=== PATIENT | female | born 1955 | race Caucasian/White ===

== ENCOUNTER 2016-09-01 11:56 | Emergency (ER) | payer OTHER ==
[2016-09-01 11:56] VITALS: BMI 23.8
[2016-09-01 12:07] VITALS: PULSE 77; RESP 16; TEMP 98
--- NOTE | 2016-09-01 12:58 | C.PDOC ---
History Of Present Illness 60 yr old female presents to the ER with complaints of constant neck pain to the right side for the past 1 month. Patient states the pain is worse with turning of the neck and movement. Denies trauma, heavy lifting, vision changes, chest pain, SOB, back pain, weakness or numbness. Time Seen by Provider: 09/01/16 12:08 Chief Complaint (Nursing): Back Pain History Per: Patient History/Exam Limitations: no limitations Onset/Duration Of Symptoms: Persistent (1 month ) Past Medical History Reviewed: Historical Data, Nursing Documentation, Vital Signs Vital Signs: Last Vital Signs Temp 98 F 09/01/16 13:16 Pulse 77 09/01/16 13:16 Resp 16 09/01/16 13:16 BP 114/60 09/01/16 13:16 Pulse Ox 100 09/01/16 13:16 Surgical History: Cholecystectomy Family History: States: No Known Family Hx - Social History Hx Tobacco Use: No Hx Alcohol Use: No Hx Substance Use: No - Immunization History Hx Tetanus Toxoid Vaccination: No Hx Influenza Vaccination: No Hx Pneumococcal Vaccination: No Review Of Systems Except As Marked, All Systems Reviewed And Found Negative. Eyes: Negative for: Vision Change Cardiovascular: Negative for: Chest Pain Respiratory: Negative for: Shortness of Breath Musculoskeletal: Positive for: Neck Pain (Right sided neck pain ). Negative for : Back Pain Neurological: Negative for: Weakness, Numbness Physical Exam - Physical Exam Appears: Well, Non-toxic, No Acute Distress Skin: Warm, Dry Head: Atraumatic, Normacephalic Eye(s): bilateral: Normal Inspection, PERRL, EOMI Neck: Paracervical Tenderness (Right ), Supple, Other ((+) Pain with lateral movement of the neck to the right.) Chest: Symmetrical, No Tenderness Cardiovascular: Rhythm Regular, No Murmur Respiratory: Normal Breath Sounds, No Rales, No Rhonchi, No Stridor, No Wheezing Back: Normal Inspection, No CVA Tenderness, No Paraspinal Tenderness Extremity: Normal ROM, No Swelling Neurological/Psych: Oriented x3, Normal Speech, Normal Motor, Normal Sensation, Normal Reflexes ED Course And Treatment O2 Sat by Pulse Oximetry: 97 Medical Decision Making Medical Decision Making: PLAN: * Tylenol PO * Toradol IM On re-exam, the patient reports improvement of symptoms. Lungs are CTA, heart is RRR, abdomen is soft, non-tender and tolerating PO well. Ambulatory in the Ed with steady gait. Follow up with the medical doctor within 1-2 days, Return if worsened. Disposition - Disposition Referrals: Tex Aviles MD [Medical Doctor] - Disposition: HOME/ ROUTINE Disposition Time: 12:54 Condition: GOOD Additional Instructions: Follow up with the medical doctor within 1-2 days, Return if worsened. Prescriptions: Cyclobenzaprine [Flexeril] 5 mg PO TID #21 tab Naproxen [Naprosyn] 500 mg PO BID #20 tab Instructions: Cervical Strain (DC) - Clinical Impression Clinical Impression: Cervical strain, Torticollis - PA / BUTTON BROACHER / Resident Statement MD/DO has reviewed & agrees with the documentation as recorded. - Scribe Statement The provider has reviewed the documentation as recorded by the Scribe Jaycee Parra All medical record entries made by the Scribshelton were at my direction and personally dictated by me. I have reviewed the chart and agree that the record accurately reflects my personal performance of the history, physical exam, medical decision making, and the department course for this patient. I have also personally directed, reviewed, and agree with the discharge instructions and disposition.
[2016-09-01 13:17] VITALS: BP 114/60
[2016-09-01 14:52] VITALS: O2SAT 97
== END 2016-09-01 13:16 | disposition home or self-care (01) ==
LOC: C.ER 11:56
DX: S16.1XXA Strain of muscle, fascia and tendon at neck level, initial encounter (principal); X58.XXXA Exposure to other specified factors, initial encounter; Y93.89 Activity, other specified; Y92.89 Other specified places as the place of occurrence of the external cause; M43.6 Torticollis
CPT/HCPCS: 96372; 99283; J1885

== ENCOUNTER 2016-10-06 10:16 | Emergency (ER) | payer OTHER ==
[2016-10-06 10:17] VITALS: BMI 23.8
--- NOTE | 2016-10-06 10:43 | C.PDOC ---
History Of Present Illness 60 y/o female, PMHx of glaucoma, c/o left eye pain for the past 3 days. Patient also reports some redness to the left eye which she noticed today. She describes pain as aching, radiating outward, and worsening with movement of the eye. No contacts or glasses. Patient notes that she takes Lumigan QHS, Combigan BID, Restanin BID, and Azopt BID. Otherwise denies fever, chills, discharge from eye, foreign body sensation, or other associated symptoms. PMD: Dr. Tex Aviles Farm Marketer: Dr. Mata Chase Time Seen by Provider: 10/06/16 10:42 Chief Complaint (Nursing): Eye Problem History Per: Patient History/Exam Limitations: no limitations Onset/Duration Of Symptoms: Days Current Symptoms Are (Timing): Still Present Injury To Eye?: No Quality: Aching, "Pain" Wears Contact Lens?: No Associated Symptoms: Pain. denies: Decreased Vision, Discharge From Eye Recent travel outside of the [place]: No Past Medical History Reviewed: Historical Data, Nursing Documentation, Vital Signs Vital Signs: Last Vital Signs Temp 98.4 F 10/06/16 10:37 Pulse 71 10/06/16 10:37 Resp 16 10/06/16 10:37 BP 127/78 10/06/16 10:37 Pulse Ox 99 10/06/16 11:50 - Medical History Other PMH: glaucoma Surgical History: Cholecystectomy Family History: States: Unknown Family Hx - Social History Hx Tobacco Use: No Hx Alcohol Use: No Hx Substance Use: No - Immunization History Hx Tetanus Toxoid Vaccination: No Hx Influenza Vaccination: No Hx Pneumococcal Vaccination: No Review Of Systems Except As Marked, All Systems Reviewed And Found Negative. Constitutional: Negative for: Fever, Chills Eyes: Positive for: Pain, Redness ENT: Negative for: Ear Pain, Throat Pain Respiratory: Negative for: Cough Physical Exam - Physical Exam Appears: Non-toxic, No Acute Distress Skin: Warm, Dry Head: Atraumatic, Normacephalic Eye(s): bilateral: PERRL, EOMI, left: Other (top left and medial sclera redness) Ear(s): Bilateral: Normal Nose: Normal Oral Mucosa: Moist Throat: Normal, No Erythema, No Exudate Neck: Supple Neurological/Psych: Oriented x3, Normal Speech, Normal Cognition ED Course And Treatment O2 Sat by Pulse Oximetry: 99 (RA) Pulse Ox Interpretation: Normal Medical Decision Making Medical Decision Making: Impression: 60 y/o female with left eye pain and redness Differential Diagnosis: acute angle glaucoma vs. uveitis vs. migraine Plan: * Fluorescein, Tetracaine * Reassess Progress: Left eye pressure taken with tonometer 3x: 16, 14, 13 No fluorescein uptake noted in cornea. Lower sclera has some uptake of flourescein. Globe of the eye soft. Discussed with public services assistant paper conservator Dr. Jurado who recommends Tobradex QID, and for the patient to follow up with her public services assistant on Saturday. Discussed with patient, who states she will follow up with her public services assistant, and also provided option to follow up with Dr. Jurado. Disposition Counseled Patient/Family Regarding: Studies Performed, Diagnosis, Need For Followup, Rx Given - Disposition Referrals: Faisal Jurado [Staff Provider] - Disposition: HOME/ ROUTINE Disposition Time: 11:55 Condition: IMPROVED Additional Instructions: Ms Leal, thank you for letting us take care of you today. Your provider was Dr. Velazco. You were treated for Eye Pain, Sclera abrasion. The emergency medical care you received today was directed at your acute symptoms. If you were prescribed any medication, please fill it and take as directed. It may take several days for your symptoms to resolve. Return to the Emergency Department if your symptoms worsen, do not improve, or if you have any other problems. Please contact your doctor or call one of the physicians/clinics you have been referred to that are listed on the Patient Visit Information form that is included in your discharge packet. Bring any paperwork you were given at discharge with you along with any medications you are taking to your follow up visit. Our treatment cannot replace ongoing medical care by a primary care provider (PCP) outside of the emergency department. Thank you for allowing the [facility] team to be part of your care today. If you had an X-Ray or CT scan: A Radiologist will review the ED reading if any change in treatment is needed we will contact you. If you had a blood, urine, or wound culture: It will take several days for the results, if any change in treatment is needed we will contact you. If you had an STI test: It will take 48 hours for the results. Please call after 1 week if you have not heard back. Prescriptions: Dexamethasone/Tobramycin [Tobradex Opht Susp] 1 drop OD QID #1 bottle Instructions: Eye Pain (ED) Forms: Gen Discharge Inst Nepali, Work Excuse - POA Present On Arrival: None - Clinical Impression Clinical Impression: Pain in eye - Scribe Statement The provider has reviewed the documentation as recorded by the Gilmaibshelton Mckeon Provider Attestation: All medical record entries made by the Ankit were at my direction and personally dictated by me. I have reviewed the chart and agree that the record accurately reflects my personal performance of the history, physical exam, medical decision making, and the department course for this patient. I have also personally directed, reviewed, and agree with the discharge instructions and disposition.
[2016-10-06] MEDS ORDERED: Tetracaine 0.5% Ophth 2 ML BOTTLE OD ONE (11:01)
[2016-10-06] MEDS ORDERED: Fluorescein 1 mg Ophthalmic Strip OD ONE (11:01)
[2016-10-06] MEDS ORDERED: Fluorescein 1 mg Ophthalmic Strip ONE (11:24)
[2016-10-06] MEDS ORDERED: Tetracaine 0.5% Ophth (OR ONLY) ONE (11:24)
[2016-10-06 12:51] VITALS: BP 139/91; PULSE 67; RESP 17; TEMP 97.9; O2SAT 99
== END 2016-10-06 11:57 | disposition home or self-care (01) ==
LOC: C.ER 10:16
DX: H57.12 Ocular pain, left eye (principal); H40.9 Unspecified glaucoma

== ENCOUNTER 2016-12-17 10:55 | Inpatient (IN) | payer OTHER ==
[2016-12-17 10:55] VITALS: BMI 23.8
--- NOTE | 2016-12-17 12:07 | C.PDOC ---
History Of Present Illness 60 year old female presents to the ED for evaluation of lower back pain which began around 12 days ago. Patient also reports that her back pain radiates forward at times. She denies fever, chills, urinary/bowel incontinence, upper/ lower extremity numbness/weakness, or direct trauma/injury to the affected area. Time Seen by Provider: 12/17/16 11:49 Chief Complaint (Nursing): Back Pain History Per: Patient History/Exam Limitations: no limitations Onset/Duration Of Symptoms: Days (12) Current Symptoms Are (Timing): Still Present Quality Of Discomfort: "Pain" Previous Symptoms: Back Pain Associated Symptoms: denies: Incontinence, New Weakness, New Numbness Additional History Per: Patient Past Medical History Reviewed: Historical Data, Nursing Documentation, Vital Signs Vital Signs: Last Vital Signs Temp 97.5 F L 12/17/16 16:02 Pulse 64 12/17/16 16:02 Resp 18 12/17/16 16:02 BP 141/90 12/17/16 16:02 Pulse Ox 99 12/17/16 16:02 - Medical History PMH: No Chronic Diseases Surgical History: Cholecystectomy, Endoscopy (R eye) Family History: States: Unknown Family Hx - Social History Hx Tobacco Use: No Hx Alcohol Use: No Hx Substance Use: No - Immunization History Hx Tetanus Toxoid Vaccination: No Hx Influenza Vaccination: No Hx Pneumococcal Vaccination: No Review Of Systems Constitutional: Negative for: Fever, Chills Genitourinary: Negative for: Incontinence Musculoskeletal: Positive for: Back Pain Neurological: Negative for: Weakness, Numbness Physical Exam - Physical Exam Appears: Non-toxic, No Acute Distress Skin: Normal Color, Warm, Dry Head: Atraumatic, Normacephalic Eye(s): bilateral: Normal Inspection Oral Mucosa: Moist Neck: Supple Chest: Symmetrical, No Deformity Cardiovascular: Rhythm Regular, No Murmur Respiratory: Normal Breath Sounds Gastrointestinal/Abdominal: Soft, No Tenderness, No Guarding, No Rebound Back: No Vertebral Tenderness, Paraspinal Tenderness (right>left) Extremity: Normal ROM, No Tenderness, Capillary Refill (less than 2 seconds ), No Deformity, No Swelling Neurological/Psych: Oriented x3, Normal Speech, Normal Cognition Gait: Steady ED Course And Treatment - Laboratory Results Result Diagrams: 12/17/16 12:48 12/17/16 12:48 O2 Sat by Pulse Oximetry: 99 (on RA) Pulse Ox Interpretation: Normal - CT Scan/US CT A/P Other Rad Studies (CT/US): Interpreted By Me, Read By Radiologist, Radiology Report Reviewed CT/US Interpretation: PROCEDURE: CT Abdomen and Pelvis without Oral or IV contrast. HISTORY: abd pain. COMPARISON: None available. TECHNIQUE: Contiguous axial images of the abdomen and pelvis. No oral or IV contrast administered. Coronal and Sagittal reformats generated and reviewed. Radiation dose: Total exam DLP = 555.47 mGy-cm. This CT exam was performed using one or more of the following dose reduction techniques: Automated exposure control, adjustment of the mA and/or kV according to patient size, and/or use of iterative reconstruction technique. FINDINGS: There is limited evaluation of the solid organs without the administration of IV contrast. LOWER THORAX: No visible consolidation, pleural effusion, or pneumothorax. LIVER: Unremarkable unenhanced appearance. GALLBLADDER AND BILE DUCTS: Not visualized presumably due to cholecystectomy. Surgical clips are not evident. PANCREAS: Unremarkable unenhanced appearance. SPLEEN: Unremarkable unenhanced appearance. ADRENALS: Unremarkable unenhanced appearance. KIDNEYS AND URETERS : 7 mm proximal left ureteral calculus (series 3, image 96) with proximal hydroureter nephrosis. Additional tiny (at least 2 less than 2 mm) calculi in the left renal pelvis. The right kidney appears unremarkable without hydronephrosis or obstructing calculus. BLADDER: Under distended urinary bladder limits evaluation. REPRODUCTIVE: Uterus is present. APPENDIX: The appendix appears within normal limits of caliber. No secondary signs of acute appendicitis. BOWEL: The stomach is nondistended. Lack of oral contrast limits evaluation for bowel pathology. The bowel loops appear within normal limits of caliber without evidence of intestinal obstruction. Moderate constipation. PERITONEUM: No significant free fluid. No definite free air. LYMPH NODES: No bulky lymphadenopathy identified. VASCULATURE: No aortic aneurysm. BONES: No acute osseous abnormality is detected. OTHER FINDINGS: 7 mm umbilical hernia. IMPRESSION: 7 mm proximal left ureteral calculus with proximal hydroureteronephrosis. Additional tiny (at least 2 less than 2 mm) calculi in the left renal pelvis. Moderate constipation. Additional incidental findings as above. Medical Decision Making Medical Decision Making: Impression: 60 y/o female with back pain Plan: * urinalysis * Flexeril PO * Toradol IM * reassess and disposition Progress: UA ordered and reviewed. Patient received Flexeril PO and Toradol IM. CT A/P shows evidence of a left-sided stone. Discussed with radiologist Dr. Mccauley about a possible right-sided stone. Dr. Mccauley states this is a vessel with calcification. Case discussed with Dr. Ashby, who recommends OR for intervention. Case discussed with Dr. Francisco, who accepts patient for admission. Disposition - Disposition Disposition: HOSPITALIZED Disposition Time: 04:00 Condition: STABLE - Clinical Impression Clinical Impression: Kidney stone, UTI (urinary tract infection) - Scribe Statement The provider has reviewed the documentation as recorded by the Scribe (Marisel Rice) Provider Attestation: All medical record entries made by the Scribe were at my direction and personally dictated by me. I have reviewed the chart and agree that the record accurately reflects my personal performance of the history, physical exam, medical decision making, and the department course for this patient. I have also personally directed, reviewed, and agree with the discharge instructions and disposition.
[2016-12-17 12:14] LABS: RBC URINE 26 /hpf (0-3); URINE BACTERIA RARE (<OCC); URINE BILIRUBIN NEGATIVE (NEGATIVE); URINE BLOOD 2+ (NEGATIVE); URINE COLOR Yellow (YELLOW); URINE GLUCOSE (UA) NORMAL (Normal); URINE KETONE NEGATIVE (NEGATIVE); URINE LEUKOCYTE ESTERASE 1+ Leu/uL (Negative); URINE PROTEIN NEGATIVE (NEGATIVE); URINE UROBILINOGEN NORMAL mg/dL (0.2-1.0); WBC URINE 11 /hpf (0-5)
[2016-12-17 12:52] LABS: BASO # 0.1 K/uL (0.0-0.2); BASO % 1.2 % (0.0-2.0); EOS # 0.2 K/uL (0.0-0.7); EOS % 3.3 % (0.0-4.0); HEMATOCRIT 41.5 % (34.0-47.0); LYMPH # 2.1 K/uL (1.0-4.3); LYMPH % 34.2 % (20.0-40.0); MEAN CELL VOLUME 90.7 fL (81.0-99.0); MEAN CORPUSCULAR HEMOGLOBIN 30.5 pg (27.0-31.0); MEAN CORPUSCULAR HGB CONC 33.6 g/dL (33.0-37.0); MEAN PLATELET VOLUME 8.2 fL (7.2-11.7); MONO # 0.5 K/uL (0.0-0.8); MONO % 8.3 % (0.0-10.0); WHITE BLOOD COUNT 6.2 K/uL (4.8-10.8)
[2016-12-17 12:59] LABS: CHLORIDE 103 mmol/L (98-107); SODIUM 141 mmol/L (132-148)
[2016-12-17 13:00] LABS: POTASSIUM 4.4 mmol/L (3.6-5.2)
[2016-12-17 13:02] LABS: ALB/GLOB RATIO 1.2 (1.0-2.1); ALKALINE PHOSPHATASE 88 U/L (38-126); ALT/SGPT 31 U/L (9-52); AST/SGOT 28 U/L (14-36); BILIRUBIN,TOTAL 0.3 mg/dL (0.2-1.3); BLOOD UREA NITROGEN 16 mg/dL (7-17); CALCIUM 10.3 mg/dl (8.6-10.4); CARBON DIOXIDE 25 mmol/L (22-30); GFR AFRICAN-AMERICAN > 60; GLUCOSE,RANDOM 76 mg/dL (65-105); TOTAL PROTEIN 7.3 g/dL (6.3-8.3)
--- NOTE | 2016-12-17 13:50 | CT ---
PROCEDURE: CT Abdomen and Pelvis without Oral or IV contrast. HISTORY: abd pain COMPARISON: None available. TECHNIQUE: Contiguous axial images of the abdomen and pelvis. No oral or IV contrast administered. Coronal and Sagittal reformats generated and reviewed. Radiation dose: Total exam DLP = 555.47 mGy-cm. This CT exam was performed using one or more of the following dose reduction techniques: Automated exposure control, adjustment of the mA and/or kV according to patient size, and/or use of iterative reconstruction technique. FINDINGS: There is limited evaluation of the solid organs without the administration of IV contrast. LOWER THORAX: No visible consolidation, pleural effusion, or pneumothorax. LIVER: Unremarkable unenhanced appearance. GALLBLADDER AND BILE DUCTS: Not visualized presumably due to cholecystectomy. Surgical clips are not evident. PANCREAS: Unremarkable unenhanced appearance. SPLEEN: Unremarkable unenhanced appearance. ADRENALS: Unremarkable unenhanced appearance. KIDNEYS AND URETERS: 7 mm proximal left ureteral calculus (series 3, image 96) with proximal hydroureter nephrosis. Additional tiny (at least 2 less than 2 mm) calculi in the left renal pelvis. The right kidney appears unremarkable without hydronephrosis or obstructing calculus. BLADDER: Under distended urinary bladder limits evaluation. REPRODUCTIVE: Uterus is present. APPENDIX: The appendix appears within normal limits of caliber. No secondary signs of acute appendicitis. BOWEL: The stomach is nondistended. Lack of oral contrast limits evaluation for bowel pathology. The bowel loops appear within normal limits of caliber without evidence of intestinal obstruction. Moderate constipation. PERITONEUM: No significant free fluid. No definite free air. LYMPH NODES: No bulky lymphadenopathy identified. VASCULATURE: No aortic aneurysm. BONES: No acute osseous abnormality is detected. OTHER FINDINGS: 7 mm umbilical hernia. IMPRESSION: 7 mm proximal left ureteral calculus with proximal hydroureteronephrosis. Additional tiny (at least 2 less than 2 mm) calculi in the left renal pelvis. Moderate constipation. Additional incidental findings as above.
[2016-12-17] MEDS ORDERED: Sodium Chloride 0.9% 1,000 ML IV SCH (15:15)
--- NOTE | 2016-12-17 15:35 | CP.PCM.PN ---
Subjective - Date & Time of Evaluation Date of Evaluation: 12/17/16 Time of Evaluation: 15:54 - Subjective Subjective: CC: back pain and painful urination This patient is a 60yo F w/ a pmhx of glaucoma who is coming into the ED after 12 days of back pain and painful urination. The patient states she went to he regular doctor, who gave her an injection for the pain, and she simply could not handle the pain anymore. This has never happened to her before. No one in her family has had this problem. She denies fevers/chills, DAVIS, CP, SOB, abdominal pain, n/V/D, lower extremity pain/swelling. 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 independent in all IADL and ADLs Objective - Vital Signs/Intake and Output Vital Signs (last 24 hours): Temp Pulse Resp BP Pulse Ox 98.4 F 76 18 143/94 H 99 12/17/16 11:17 12/17/16 11:17 12/17/16 11:17 12/17/16 11:17 12/17/16 15:18 - Medications Medications: Current Medications Sodium Chloride (Sodium Chloride 0.9%) 1,000 mls @ 150 mls/hr IV .Q6H40M [facility] Stop: 12/18/16 10:00 Ceftriaxone Sodium 1 gm/ (Sodium Chloride) 100 mls @ 100 mls/hr IVPB DAILY [facility] Ketorolac Tromethamine (Toradol) 15 mg IVP Q6H PRN PRN Reason: Pain, moderate (4-7) Tamsulosin HCl (Flomax) 0.4 mg PO DAILY [facility] - Labs Labs: 12/17/16 12:48 12/17/16 12:48 - Constitutional Appears: Non-toxic - Head Exam Head Exam: ATRAUMATIC - Eye Exam Eye Exam: EOMI - ENT Exam ENT Exam: Mucous Membranes Moist - Neck Exam Neck Exam: Full ROM. absent: Lymphadenopathy - Respiratory Exam Respiratory Exam: Clear to Ausculation Bilateral. absent: Rales, Rhonchi, Wheezes - Cardiovascular Exam Cardiovascular Exam: REGULAR RHYTHM - GI/Abdominal Exam GI & Abdominal Exam: Soft, Tenderness (in the LUQ), Normal Bowel Sounds Additional comments: +CVA tenderness - Rectal Exam Rectal Exam: Deferred - Extremities Exam Extremities Exam: Full ROM. absent: Calf Tenderness - Back Exam Back Exam: NORMAL INSPECTION. absent: CVA tenderness (L), CVA tenderness (R) - Neurological Exam Neurological Exam: Alert, Awake, Oriented x3 - Skin Skin Exam: Warm Assessment and Plan - Assessment and Plan (Free Text) Assessment: 60yo F admitted for Kidney Stones Kidney Stones w/ Hydronephrosis -7mm stones with many other small stones seen with hydronephrosis -urology on board; Dr. Ashby; patient is to go to OR for procedure for stones -preop labs completed -Ceftriaxone, 150ml/hr NS, tamsulosin, strain urine for calculi, pain control Glaucoma; open angle; chronic c/w home meds Proph pepcid scd tylenol/zofran Dr. Fabio Alicia PGY2 for Dr. Francisco
[2016-12-17] MEDS ORDERED: Sodium Chloride 0.9% 1,000 ML ONE (16:10)
[2016-12-17] MEDS ORDERED: cefTRIAXone IV 1 gm in Dextros 50 ML IVPB ONE (16:10)
--- NOTE | 2016-12-17 16:32 | RAD ---
HISTORY: surgery COMPARISON: 05/04/2014 FINDINGS: LUNGS: No active pulmonary disease. PLEURA: No significant pleural effusion identified, no pneumothorax apparent. CARDIOVASCULAR: Normal. OSSEOUS STRUCTURES: No significant abnormalities. VISUALIZED UPPER ABDOMEN: Normal. OTHER FINDINGS: None. IMPRESSION: No active disease.
[2016-12-17] MEDS ORDERED: Lactated Ringer's 1,000 ML IV ONE ×2 (16:33)
[2016-12-17] MEDS ORDERED: Lidocaine 2% Jelly (Uro-Jet) ONE (16:55)
[2016-12-17] MEDS ORDERED: Ciprofloxacin 400mg/200ml D5W 0 MG/0 ML BAG IVPB ONE (16:55)
[2016-12-17] MEDS ORDERED: Iohexol 240 (50 ml) ONE (16:55)
[2016-12-17] MEDS ORDERED: Sodium Citrate/Citric Acid 15 ml Sol ONE (16:57)
[2016-12-17] MEDS ORDERED: Midazolam 2 MG/2 ML VIAL ONE (17:04)
[2016-12-17] MEDS ORDERED: HYDROmorphone 0.5 mg/0.5 ml ISec IVP PRN (17:53)
[2016-12-17] MEDS ORDERED: Lactated Ringer's 1,000 ML IV SCH (18:00)
[2016-12-17 18:41] VITALS: PULSE 72
[2016-12-17 19:05] VITALS: BP 128/76; RESP 12; TEMP 97.5; O2SAT 100
[2016-12-17] MEDS ORDERED: Aritificial Tears (15ml) OU SCH (20:00)
[2016-12-17] MEDS ORDERED: Latanoprost 2.5 ml Opht Soln OU SCH (22:00)
--- NOTE | 2016-12-18 08:11 | PROCN ---
DATE: 12/17/16 This is a 60-year-old female with left flank pain with obstructing left ureteral calculus. The patient brought to the OR, prepped and draped in the usual manner. After IV sedation given, a #21 cystourethroscope was inserted into the bladder and 0.35 wire was then inserted into left orifice into the kidney. A double-J stent was then left over the wire and the wire was removed. There was good placement of the stent. The calculus could be noted easily along the side of the stent and the proximal ureter. Benito Ashby MD
[2016-12-18] MEDS ORDERED: Dorzolamide 2% Opht Sol 10ml OU SCH (10:00)
[2016-12-18] MEDS ORDERED: Brimonidine 0.2% Opth Sol (5ml) OU SCH (10:00)
--- NOTE | 2016-12-18 11:22 | RAD ---
PROCEDURE: HISTORY: Study for left ureteral stent insertion. History of left ureteral stone COMPARISON: None TECHNIQUE: Total fluoroscopic time utilized during the procedure: 3 seconds. Total dose 0.54628 mGy cm squared FINDINGS: Submitted images from the current procedure: 3 Please refer to the physician's notes performing the procedure. IMPRESSION: Less than 1 hour fluoroscopic time utilized during performance of the procedure
--- NOTE | 2016-12-18 11:32 | RAD ---
HISTORY: LEFT KIDNEY/LT URETERAL STONE COMPARISON: None FINDINGS: BOWEL: Left and right stool retention left lateral to the L4 vertebral body a 7 x 13 mm horizontally oriented calculus consistent with a left ureteral calculus is present. Inferior 2 mm left hemipelvic phleboliths. . No obstruction. No free air. BONES: No fracture. Minimal senescent changes OTHER FINDINGS: None. IMPRESSION: Mid left ureteral calculus -7 x 13 mm Stool retention. No bowel obstruction
== END 2016-12-17 19:05 | disposition home or self-care (01) | DRG 694 ==
LOC: C.ER 10:55 → C.9E 15:05 → C.3T 18:14 → C.9E 19:31
PROVIDERS: ADMIT Internal Medicine Pulmonary Disease; ATTEND Internal Medicine Pulmonary Disease
DX: N13.2 Hydronephrosis with renal and ureteral calculous obstruction (principal); N39.0 Urinary tract infection, site not specified; H40.1190 Primary open-angle glaucoma, unspecified eye, stage unspecified